=== PATIENT | female | born 1930 | race Caucasian/White ===

== ENCOUNTER 2017-01-17 22:39 | Emergency (ER) | payer OTHER, MEDICARE ==
[~2017-01-17 22:39] MED LIST: ASPI325T PO; FURO20TA PO; LANO0.1212 PO; METO50TA PO; MOTR200T PO; OXYB5TAB PO; PRAV20 PO
[2017-01-17 22:49] VITALS: BP 167/84; PULSE 71; RESP 16; TEMP 97.8; O2SAT 96
[2017-01-17 22:57] VITALS: RESP 16; O2SAT 95
[2017-01-17] MEDS ORDERED: SODIUM CHLOR 0.9% 1000 ML INJ 1,000 ML IV SCH (23:00)
--- NOTE | 2017-01-17 23:05 | PD ---
HPI Chief Complaint: Injury Time Seen by Provider: 22:48 Travel History International Travel<30 days: No Contact w/Intl Traveler<30days: No Traveled to known affect area: No History of Present Illness HPI 86-year-old female was brought in by EMS for left leg injury. EMS reported patient's son tried to move patient tonight and patient's left leg got twisted. EMS was called as was brought to ED for evaluation. Patient is not voicing any complaint now. Patient has history of atrial fibrillation, hypertension, hyperlipidemia. [employer] came and states the patient has a signed DNR. Family requested no surgery. PFSH Past Medical History Arthritis: Yes Blood Disorders: No Anxiety: Yes Depression: Yes Heart Rhythm Problems: Yes Cardiovascular Problems: Yes (ANGIOPLASTY) High Cholesterol: Yes Chest Pain: Yes Diminished Hearing: No Ulcer: Yes : 5 Para: 1 Past Surgical History Cardiac Surgery: Yes (angioplasty) Cholecystectomy: Yes Social History Alcohol Use: No Tobacco Use: No Substance Use: No Allergies-Medications (Allergen,Severity, Reaction): Coded Allergies: No Known Allergies (Verified , 05/06/15) Reported Meds & Prescriptions Reported Meds & Active Scripts Active Bactrim DS (Sulfamethoxazole-Trimethoprim) 800-160 Mg Tab 1 Tab PO BID Reported Mirtazapine 15 Mg Tab 15 Mg PO HS Ana Maria-Colace (Sennosides-Docusate Sodium) 8.6-50 Mg Tab 1 Tab PO BID PRN Prednisone 2.5 Mg Tab 2.5 Mg PO DAILY Polymyxin B-Trimethoprim Opth Drops 10,000-0.1 Unit/Ml-% Soln 1 Drop EACH EYE Q6HR Metoprolol Succinate ER 24 HR (Metoprolol Succinate) 50 Mg Tab 50 Mg PO DAILY Hydrocodone-Acetaminophen 5-325 mg Tab 1 Tab PO Q4H PRN Furosemide 20 Mg Tab 20 Mg PO DAILY Digoxin 0.125 Mg Tab 0.125 Mg PO DAILY Alprazolam 0.5 Mg Tab 0.5 Mg PO Q4H PRN Review of Systems General / Constitutional: No: Fever Eyes: No: Visual changes HENT: No: Headaches Cardiovascular: No: Chest Pain or Discomfort Respiratory: No: Shortness of Breath Gastrointestinal: No: Abdominal Pain Genitourinary: No: Dysuria Musculoskeletal: No: Pain Skin: No Rash Neurologic: No: Weakness Psychiatric: No: Depression Endocrine: No: Polydipsia Hematologic/Lymphatic: No: Easy Bruising Physical Exam Narrative GENERAL: Well-nourished, well-developed patient. SKIN: Focused skin assessment warm/dry. HEAD: Normocephalic. EYES: No scleral icterus. No injection or drainage. NECK: Supple, trachea midline. No JVD or lymphadenopathy. CARDIOVASCULAR: Regular rate and rhythm without murmurs, gallops, or rubs. RESPIRATORY: Breath sounds equal bilaterally. No accessory muscle use. GASTROINTESTINAL: Abdomen soft, non-tender, nondistended. MUSCULOSKELETAL: Patient has soft tissue swelling with ecchymosis midshaft left tibia area. Sensorimotor function distally intact. BACK: Nontender without obvious deformity. No CVA tenderness. Neurologic exam: Patient's lethargic and lying in bed. Patient open eyes to command. Data Data Last Documented VS Vital Signs Date Time Temp Pulse Resp B/P Pulse Ox O2 Delivery O2 Flow Rate FiO2 01/17/17 22:57 16 95 01/17/17 22:52 85 01/17/17 22:49 97.8 167/84 Orders Electrocardiogram (01/17/17 22:49) Complete Blood Count With Diff (01/17/17 22:49) Comprehensive Metabolic Panel (01/17/17 22:49) Prothrombin Time / Inr (Pt) (01/17/17 22:49) Act Partial Throm Time (Ptt) (01/17/17 22:49) Urinalysis - C+S If Indicated (01/17/17 22:49) Chest, Single Ap (01/17/17 22:49) Iv Access Insert/Monitor (01/17/17 22:49) Ecg Monitoring (01/17/17 22:49) Oximetry (01/17/17 22:49) Urinary Catheter Insert/Apply (01/17/17 22:49) Tibia/Fibula (Ap/Lat) (01/17/17 22:49) Sodium Chlor 0.9% 1000 Ml Inj (Ns 1000 M (01/17/17 23:00) Urine Culture (01/17/17 23:05) Digoxin (01/17/17 23:05) Splint Or Brace Apply/Monitor (01/18/17 00:27) Labs Laboratory Tests Test 01/17/17 23:05 White Blood Count 5.8 TH/MM3 Red Blood Count 4.80 MIL/MM3 Hemoglobin 15.5 GM/DL Hematocrit 45.9 % Mean Corpuscular Volume 95.7 FL Mean Corpuscular Hemoglobin 32.3 PG Mean Corpuscular Hemoglobin 33.7 % Concent Red Cell Distribution Width 14.1 % Platelet Count 171 TH/MM3 Mean Platelet Volume 8.8 FL Neutrophils (%) (Auto) 65.3 % Lymphocytes (%) (Auto) 22.7 % Monocytes (%) (Auto) 8.8 % Eosinophils (%) (Auto) 2.6 % Basophils (%) (Auto) 0.6 % Neutrophils # (Auto) 3.8 TH/MM3 Lymphocytes # (Auto) 1.3 TH/MM3 Monocytes # (Auto) 0.5 TH/MM3 Eosinophils # (Auto) 0.2 TH/MM3 Basophils # (Auto) 0.0 TH/MM3 CBC Comment DIFF FINAL Differential Comment Prothrombin Time 12.2 SEC Prothromb Time International 1.1 RATIO Ratio Activated Partial 23.3 SEC Thromboplast Time Urine Color DARK-YELLOW Urine Turbidity CLEAR Urine pH 6.0 Urine Specific [place] 1.023 Urine Protein 30 mg/dL Urine Glucose (UA) NEG mg/dL Urine Ketones NEG mg/dL Urine Occult Blood MOD Urine Nitrite NEG Urine Bilirubin NEG Urine Urobilinogen 2.0 MG/DL Urine Leukocyte Esterase SMALL Urine RBC 25-49 /hpf Urine WBC 9-14 /hpf Urine Squamous Epithelial 6-8 /hpf Cells Urine Bacteria OCC /hpf Urine Mucus FEW /lpf Microscopic Urinalysis Comment CULTURE INDICATED Sodium Level 144 MEQ/L Potassium Level 3.6 MEQ/L Chloride Level 108 MEQ/L Carbon Dioxide Level 30.7 MEQ/L Anion Gap 5 MEQ/L Blood Urea Nitrogen 13 MG/DL Creatinine 0.65 MG/DL Estimat Glomerular Filtration 86 ML/MIN Rate Random Glucose 92 MG/DL Calcium Level 8.9 MG/DL Total Bilirubin 0.8 MG/DL Aspartate Amino Transf 29 U/L (AST/SGOT) Alanine Aminotransferase 17 U/L (ALT/SGPT) Alkaline Phosphatase 107 U/L Total Protein 6.3 GM/DL Albumin 2.8 GM/DL Digoxin Level 1.0 NG/ML MDM Medical Decision Making Medical Screen Exam Complete: Yes Emergency Medical Condition: Yes Interpretation(s) Last Impressions Tibia/Fibula X-Ray 01/17/17 8788 Signed Impressions: Service Date/Time: Tuesday, January 17, 2017 23:19 - CONCLUSION: Spiral fractures of the tibia and fibula as described above. Marked osteoarthritis of the knee. Scott Andrade MD Chest X-Ray 01/17/17 [id number] Signed Impressions: Service Date/Time: Tuesday, January 17, 2017 23:16 - CONCLUSION: Normal examination. Scott Andrade MD 12:23 AM. CBC within normal limit. CMP within normal limit. Digoxin 1.0. UA positive for WBC or RBC and bacteria. Differential Diagnosis Differential diagnoses including contusion, fracture, dislocation. Narrative Course 86-year-old female with left leg injury. Patient has fractured tib-fib and UTI. Posterior long-leg splint. Rocephin 1 g IV given. Diagnosis Primary Impression: Fracture of left tibia and fibula Qualified Code: S82.202A - Fracture of left tibia and fibula, closed, initial encounter Additional Impression: UTI (urinary tract infection) Qualified Code: N30.00 - Acute cystitis without hematuria Patient Instructions: General Instructions Additional Instructions: Bactrim DS twice a day for 7 days. Posterior long-leg splint applied to the left leg tonight. Patient will be transferred to the hospice care center for further management. Med/Other Pt SpecificInfo: Prescription(s) given Scripts Sulfamethoxazole-Trimethoprim Liq 200-40 Mg/5 Ml Susp20 Ml PO Q12H 7 Days Ref 0 Prov:Jerry Cespedes MD 01/18/17 Sulfamethoxazole-Trimethoprim (Bactrim DS)800-160 Mg Tab1 Tab PO BID #14 TAB Prov:Jerry Cespedes MD 01/18/17 Disposition: 01 DISCHARGE HOME Condition: Stable Jerry Cespedes MD Jan 17, 2017 23:05
[2017-01-17 23:18] LABS: AUTOMATED NEUTROPHIL # 3.8 TH/MM3 (1.8-7.7); BASOPHIL % 0.6 % (0.0-2.0); EOSINOPHIL # 0.2 TH/MM3 (0-0.4); EOSINOPHIL % 2.6 % (0.0-4.0); HEMATOCRIT 45.9 % (35.0-46.0); HEMO FLAGS DIFF FINAL; LYMPH % 22.7 % (9.0-44.0); LYMPHOCYTE # 1.3 TH/MM3 (1.0-4.8); MEAN CELL VOLUME 95.7 FL (80.0-100.0); MEAN CORPUSCULAR HEMOGLOBIN 32.3 PG (27.0-34.0); MEAN CORPUSCULAR HGB CONC 33.7 % (32.0-36.0); MONO % 8.8 % (0.0-8.0); NEUT % 65.3 % (16.0-70.0); PLATELET COUNT 171 TH/MM3 (150-450); RED CELL DISTRIBUTION WIDTH 14.1 % (11.6-17.2); WHITE BLOOD COUNT 5.8 TH/MM3 (4.0-11.0)
[2017-01-17] MEDS ORDERED: DIGO0.12 PO (23:24)
[2017-01-17] MEDS ORDERED: METO50TA11 PO (23:24)
[2017-01-17] MEDS ORDERED: PERI8.6T PO (23:24)
[2017-01-17] MEDS ORDERED: HYDR-3516 PO (23:24)
[2017-01-17] MEDS ORDERED: ALPR0.5T3 PO (23:24)
[2017-01-17] MEDS ORDERED: FURO20TA PO (23:24)
[2017-01-17] MEDS ORDERED: MIRTA15 PO (23:24)
[2017-01-17] MEDS ORDERED: TRIMSOL EACH EYE (23:24)
[2017-01-17] MEDS ORDERED: PRED2.5T PO (23:24)
[2017-01-17 23:28] LABS: BLOOD, URINE MOD (NEG); GLUCOSE,URINE NEG (NEG); KETONE, URINE NEG (NEG); NITRITE,URINE NEG (NEG); URINE COLOR DARK-YELLOW (YELLW/STRAW)
[2017-01-17 23:34] LABS: APTT (PATIENT) 23.3 SEC (24.3-30.1); INTERNATIONAL NORMALIZED RATIO 1.1 RATIO; PROTHROMBIN TIME - PATIENT 12.2 SEC (9.8-11.6)
[2017-01-17 23:35] LABS: BACTERIA, URINE OCC /hpf; COMMENT (UR) CULTURE INDICATED; CULTURE IF INDICATED CULTURE INDICATED
--- NOTE | 2017-01-17 23:35 | RADRPT ---
EXAM DATE/TIME: 01/17/2017 23:16 [facility] COMPARISON: CHEST SINGLE AP, May 06, 2015, 16:36. INDICATIONS : Shortness of breath. MEDICAL HISTORY : None. SURGICAL HISTORY : None. ENCOUNTER: Initial ACUITY: 1 day PAIN SCORE: 0/10 LOCATION: Bilateral chest FINDINGS: A single view of the chest demonstrates the lungs to be symmetrically aerated without evidence of mas s, infiltrate or effusion. The cardiomediastinal contours are unremarkable. Osseous structures are intact. CONCLUSION: Normal examination. Scott Andrade MD on January 17, 2017 at 23:33 Board Certified Radiologist. This report was verified electronically.
[2017-01-17 23:37] LABS: MUCUS URINE FEW /lpf (OCC)
--- NOTE | 2017-01-17 23:42 | RADRPT ---
EXAM DATE/TIME: 01/17/2017 23:19 [facility] COMPARISON: No previous studies available for comparison. INDICATIONS : Left leg trauma when patient was being moved from chair to bed. MEDICAL HISTORY : None. SURGICAL HISTORY : None. ENCOUNTER: Initial ACUITY: 1 day PAIN SCORE: 10/10 LOCATION: Left leg FINDINGS: Two view examination of the left tibia demonstrates spiral fractures of the mid shaft of the tibia th e proximal fibular shaft. Bony mineralization is normal. The soft tissue structures are intact. CONCLUSION: Spiral fractures of the tibia and fibula as described above. Marked osteoarthritis of the knee. Scott Andrade MD on January 17, 2017 at 23:40 Board Certified Radiologist. This report was verified electronically.
[2017-01-17 23:44] LABS: ALT (GPT) 17 U/L (10-53); ANION GAP 5 MEQ/L (5-15); AST (GOT) 29 U/L (15-37); BICARBONATE 30.7 MEQ/L (21.0-32.0); BLOOD UREA NITROGEN 13 MG/DL (7-18); CHLORIDE 108 MEQ/L (98-107); GLOMERULAR FILTRATION RATE 86 ML/MIN (>89); SODIUM (NA) 144 MEQ/L (136-145)
[2017-01-17 23:45] LABS: POTASSIUM 3.6 MEQ/L (3.5-5.1)
[2017-01-17 23:46] LABS: ALKALINE PHOSPHATASE 107 U/L (45-117); TOTAL BILIRUBIN ADULT 0.8 MG/DL (0.2-1.0)
[2017-01-18] MEDS ORDERED: BACT800T5 PO (00:26)
[2017-01-18] MEDS ORDERED: cefTRIAXone INJ 1,000 MG in SODIUM CHLORIDE 0.9% INJ 100 ML IV ONE (00:30)
[2017-01-18] MEDS ORDERED: SULF20OR2 PO (00:31)
--- NOTE | 2017-01-18 11:17 | EKG ---
Date Performed: 01/17/2017 Time Performed: 22:57:22 PTAGE: 86 years EKG: ATRIAL FIBRILLATION INCOMPLETE RIGHT BUNDLE BRANCH BLOCK LEFT ANTERIOR FASCICULAR BLOCK POS SIBLE ANTERIOR MYOCARDIAL INFARCTION INFERIOR MYOCARDIAL INFARCTION ABNORMAL ECG Compared to prior tr acing no significant change PREVIOUS TRACING 05/06/2015 22.57.26 DOCTOR: Mohan Padilla Interpretating Date/Time 01/18/2017 11:16:00
== END 2017-01-18 04:19 | disposition hospice, inpatient (51) ==
LOC: NEPC 22:39
DX: M79.662 Pain in left lower leg (principal); S82.292A Other fracture of shaft of left tibia, initial encounter for closed fracture; S82.492A Other fracture of shaft of left fibula, initial encounter for closed fracture; X50.0XXA Overexertion from strenuous movement or load, initial encounter; X50.9XXA Other and unspecified overexertion or strenuous movements or postures, initial encounter; Y93.9 Activity, unspecified; Y92.9 Unspecified place or not applicable; I48.91 Unspecified atrial fibrillation; I45.10 Unspecified right bundle-branch block; I44.4 Left anterior fascicular block; R94.31 Abnormal electrocardiogram [ECG] [EKG]
CPT/HCPCS: 29505; 51702; 71010; 73590; 80053; 80162; 81001; 85025; 85610; 85730; 87086; 93005; 96361; 96374; 99285; J0696; J7030